=== PATIENT | female | born 1955 | race African-American/Black ===

== ENCOUNTER 2022-11-22 13:21 | Emergency (ER) | payer OTHER ==
[2022-11-22 13:54] VITALS: BP 153/97; PULSE 83; RESP 18; TEMP 98.3; BMI 28.5
== END 2022-11-22 15:58 | disposition home or self-care (01) ==
LOC: JER 13:21
DX: I10 Essential (primary) hypertension (principal)
CPT/HCPCS: 93005; 93010; 99282-25

== ENCOUNTER 2022-11-23 14:43 | Observation (INO) | payer OTHER ==
[2022-11-23 15:45] VITALS: BMI 28.5
[2022-11-23] MEDS ORDERED: MAGNESIUM SULF 50% (8.12 MEQ/2 ML-1 GM VIAL) IVPB ONE (16:11)
[2022-11-23] MEDS ORDERED: methaDONE HCL 10 MG TABLET PO ONE (21:57)
[2022-11-23] MEDS ORDERED: HYDROmorphone HCL 2 MG TABLET PO ONE (22:03)
[2022-11-23] MEDS ORDERED: HYDROmorphone HCL 2 MG TABLET ONE (23:47)
[2022-11-24 01:49] VITALS: RESP 20
[2022-11-24 02:07] LABS: BASO % 0.4 % (0-2.0); EOS % 0.2 % (0-4.5); HEMOGLOBIN 13.6 GM/dL (10.7-15.3); LYMPH % 23.7 % (8-40); MCH 28.2 pg (25.7-33.7); MCHC 32.3 g/dl (32.0-36.0); MEAN CELL VOLUME 87.3 fl (80-96); MONO % 6.9 % (3.8-10.2); NEUT % 68.8 % (42.8-82.8); PLATELET COUNT 212 10^3/uL (134-434); RBC 4.81 M/mm3 (3.60-5.2); RDW 15.6 % (11.6-15.6); WHITE BLOOD COUNT 5.2 K/mm3 (4.0-10.0)
[2022-11-24 02:29] LABS: ALBUMIN 3.1 g/dl (3.4-5.0); BLOOD UREA NITROGEN 11.3 mg/dL (7-18); CALCIUM 9.4 mg/dL (8.5-10.1); MAGNESIUM 1.7 mg/dL (1.8-2.4)
[2022-11-24 02:32] LABS: CREATININE 1.1 mg/dL (0.55-1.3)
[2022-11-24 02:34] LABS: BILIRUBIN,TOTAL 0.2 mg/dL (0.2-1); TOT PROT 7.3 g/dl (6.4-8.2)
[2022-11-24] MEDS ORDERED: SODIUM CHLORIDE 0.9% 500 ML INFUS.BAG IV ONE (03:46)
[2022-11-24] MEDS ORDERED: HYDROmorphone HCl 2 MG/ML VIAL IVPUSH ONE (03:46)
[2022-11-24] MEDS ORDERED: HYDROmorphone HCl 2 MG/ML VIAL ONE (03:52)
[2022-11-24 07:55] VITALS: BP 174/114; PULSE 95; TEMP 97.9
[2022-11-24 12:47] LABS: ERYTHROCYTE SEDIMENTATION RATE 5 mm/hr (0-30)
== END 2022-11-24 09:52 | disposition left against medical advice (07) ==
LOC: JER 14:43 → JERBED 21:12
PROVIDERS: ADMIT Internal Medicine; ATTEND Internal Medicine
PROC: 3E033NZ Introduction of Analgesics, Hypnotics, Sedatives into Peripheral Vein, Percutaneous Approach (ICD-10-PCS; principal; 2022-11-23)
PROC: 3E0337Z Introduction of Electrolytic and Water Balance Substance into Peripheral Vein, Percutaneous Approach (ICD-10-PCS; 2022-11-23)
DX: M25.552 Pain in left hip (principal); Z85.3 Personal history of malignant neoplasm of breast; I10 Essential (primary) hypertension; B20 Human immunodeficiency virus [HIV] disease; F17.210 Nicotine dependence, cigarettes, uncomplicated; F11.90 Opioid use, unspecified, uncomplicated; Z88.8 Allergy status to other drugs, medicaments and biological substances
CPT/HCPCS: 0241U-QW; 70450-TC; 71045-TC-FY; 72125-TC; 72192-TC; 73700-TC-RT; 80053; 82550; 82553; 82962; 83735; 84484; 85025; 85651; 86140; 86850; 86900; 86901; 93005; 93010; 96374; 99285-25; G0378